=== PATIENT | male | born 1950 | race Caucasian/White ===

== ENCOUNTER 2018-08-11 14:10 | Outpatient (CLI) | payer MEDICARE ==
--- NOTE | 2018-08-11 16:04 | RAD ---
RIGHT HIP TWO VIEWS: 08/11/18 INDICATION: Right hip replacement. COMPARISON: Prior exam dated 05/12/14. FINDINGS: There is a right total hip prosthesis that projects in the expected position. There is numerous surgi osman clips within the lower pelvis. IMPRESSION: Right total hip prosthesis without evidence of complication. POS: [facility]
== END 2018-08-11 14:11 | disposition home or self-care (01) ==
LOC: SCSRAD 14:10
PROVIDERS: ATTEND Nurse Practitioner Family
DX: M25.551 Pain in right hip (principal); Z96.641 Presence of right artificial hip joint

== ENCOUNTER 2018-09-16 15:14 | Outpatient (CLI) | payer MEDICARE ==
--- NOTE | 2018-09-16 15:41 | RAD ---
TWO VIEWS CHEST: 09/16/18 PROVIDED CLINICAL HISTORY: Shortness of breath. FINDINGS: Comparison 11/10/11. Cardiac and mediastinal silhouette is within normal limits. No focal consolidation, pleural fluid or pneumothorax apparent. Remote healed right sided rib fractures are redemonstrated. IMPRESSION: No evidence for an acute cardiopulmonary process. POS: [facility]
== END 2018-09-16 15:15 | disposition home or self-care (01) ==
LOC: SCSRAD 15:14
PROVIDERS: ATTEND Nurse Practitioner Family
DX: R06.02 Shortness of breath (principal)
CPT/HCPCS: 71046

== ENCOUNTER 2018-11-10 12:38 | Outpatient (CLI) | payer MEDICARE | END 2018-11-10 12:39 | disposition home or self-care (01) | LOC: CP 12:38 | PROVIDERS: ATTEND Internal Medicine | DX: R06.09 Other forms of dyspnea (principal) | CPT/HCPCS: 94010; 94729 ==

== ENCOUNTER 2019-04-13 05:40 | Day surgery (SDC) | payer MEDICARE ==
[2019-04-04 14:38] VITALS: BMI 32.5
[2019-04-13] MEDS ORDERED: Heparin 10,000 UNITS/1 ML VIAL ONE (06:34)
[2019-04-13] MEDS ORDERED: Lidocaine 1% (PF) 30 ML VIAL ONE ×2 (06:35→06:36)
[2019-04-13] MEDS ORDERED: Heparin (Artline) 1,000 ML ONE (06:35)
[2019-04-13 06:50] LABS: Hemoglobin 14.3 g/dL (14.0-18.0); Mean Corpuscular HGB CONC 35.5 g/dL (32.0-36.0); Mean Corpuscular Hemoglobin 33.7 pg (27.0-31.0); Mean Corpuscular Volume 94.9 fL (78.0-98.0); Mean Platelet Volume 9.6 fL (7.4-10.4); Platelet Count 176 thou/uL (130-400); RBC Distribution Width 12.2 % (11.5-14.5); Red Blood Cell (RBC) Count 4.25 mill/uL (4.70-6.10)
[2019-04-13 07:03] LABS: ALT (SGPT) 14 U/L (8-55); AST (SGOT) 18 U/L (5-34); Albumin 4.6 g/dL (3.4-4.8); Alkaline Phosphatase 26 U/L (40-110); Anion Gap 14 mmol/L (10-20); BUN (Urea Nitrogen) 15 mg/dL (8.4-25.7); Bilirubin, Total 1.2 mg/dL (0.2-1.2); Calc. Creatinine Clearance 131 mL/min (70-130); Calcium 10.2 mg/dL (7.8-10.44); Carbon Dioxide 26 mmol/L (23-31); Chloride 99 mmol/L (98-107); Estimated GFR-MDRD Greater than 90; Globulin 3.1 g/dL (2.4-3.5); Glucose 119 mg/dL (80-115); Potassium 3.8 mmol/L (3.5-5.1); Protein, Total 7.7 g/dL (5.8-8.1); Sodium 135 mmol/L (136-145)
[2019-04-13 07:57] LABS: Band 1 % (5-11); Lymphocytes 21 % (21-51); MDiff Complete? YES; Monocytes 8 % (0-10); Neutrophil 70 % (42-75); RBC Morphology Normal
== END 2019-04-13 08:03 | disposition home or self-care (01) ==
LOC: CCL 05:40
PROVIDERS: ATTEND Internal Medicine Cardiovascular Disease
DX: R06.09 Other forms of dyspnea (principal); I25.2 Old myocardial infarction; E11.40 Type 2 diabetes mellitus with diabetic neuropathy, unspecified; I25.10 Atherosclerotic heart disease of native coronary artery without angina pectoris; I10 Essential (primary) hypertension; E78.5 Hyperlipidemia, unspecified; Z53.9 Procedure and treatment not carried out, unspecified reason; Z87.891 Personal history of nicotine dependence; Z79.1 Long term (current) use of non-steroidal anti-inflammatories (NSAID); Z79.52 Long term (current) use of systemic steroids; Z79.84 Long term (current) use of oral hypoglycemic drugs; Z79.899 Other long term (current) drug therapy; Z88.1 Allergy status to other antibiotic agents; Z88.5 Allergy status to narcotic agent; Z88.8 Allergy status to other drugs, medicaments and biological substances; Z91.041 Radiographic dye allergy status
CPT/HCPCS: 80053; 85025; J1644; J2001

== ENCOUNTER 2023-01-01 04:59 | Emergency (ER) | payer MEDICARE ==
[2023-01-01] MEDS ORDERED: Ketorolac Tromethamine 30 MG/ML VIAL ONE (05:19)
[2023-01-01 06:42] LABS: Hematocrit 41.3 % (42.0-52.0); Hemoglobin 14.4 g/dL (14.0-18.0); Manual Diff?? YES; Mean Corpuscular HGB CONC 34.9 g/dL (32.0-36.0); Mean Corpuscular Hemoglobin 30.7 pg (27.0-31.0); Mean Corpuscular Volume 88.1 fl (78.0-98.0); Mean Platelet Volume 11.1 fL (7.4-10.4); Platelet Count 212 10x3/uL (130-400); Red Blood Cell (RBC) Count 4.69 mill/uL (4.70-6.10); White Blood Cell (WBC) Count 10.7 10x3/uL (4.8-10.8)
[2023-01-01 06:52] LABS: Delete Auto Diff?? YES
[2023-01-01 07:13] LABS: ALT (SGPT) 9 U/L (8-55); AST (SGOT) 24 U/L (5-34); Alkaline Phosphatase 35 U/L (40-110); Anion Gap 19 mmol/L (10-20); BUN (Urea Nitrogen) 20 mg/dL (8.4-25.7); Bilirubin, Total 1.3 mg/dL (0.2-1.2); Calc. Creatinine Clearance 0 mL/min (70-130); Calcium 9.3 mg/dL (7.8-10.44); Carbon Dioxide 18 mmol/L (23-31); Chloride 103 mmol/L (98-107); Estimated GFR 78; Globulin 3.8 g/dL (2.4-3.5); Glucose 107 mg/dL (80-115); Lipase 13 U/L (8-78); Potassium 4.9 mmol/L (3.5-5.1); Protein, Total 7.8 g/dL (5.8-8.1); Sodium 135 mmol/L (136-145)
[2023-01-01 07:16] LABS: Band 7 % (5-11); CellaVision Operator ID lab.dlt; Lymphocytes 9 % (21-51); Monocytes 25 % (0-10); Neutrophil 58 % (42-75); Platelet Adequacy Comment Platelets Normal; Polychromasia SLIGHT = 2-3 cells HPF (0-2); Reactive Lymphocytes 1 % (0-10); Total Cell Count 98
== END 2023-01-01 09:10 | disposition home or self-care (01) ==
LOC: ERS 04:59
DX: R10.9 Unspecified abdominal pain (principal); I10 Essential (primary) hypertension; I25.10 Atherosclerotic heart disease of native coronary artery without angina pectoris; Z79.899 Other long term (current) drug therapy
CPT/HCPCS: 36415; 74176; 80053; 83605; 83690; 85025; 87040; 96361; 96374; J1885

== ENCOUNTER 2023-02-05 15:13 | Emergency (ER) | payer MEDICARE ==
[2023-02-05 15:45] LABS: #Basophils 0.1 thou/uL (0.0-0.2); #Eosinphils 0.4 thou/uL (0.0-0.7); #Monocytes 2.7 thou/uL (0.11-0.59); #Neutrophils 9.6 thou/uL (1.40-6.50); %Basophils 0.6 % (0.0-1.0); %Eosinophils 2.6 % (0.0-10.0); %Lymphocytes 10.6 % (21.0-51.0); %Monocytes 18.6 % (0.0-10.0); %Neutrophils 66.4 % (42.0-75.0); Hematocrit 39.7 % (42.0-52.0); Hemoglobin 13.7 g/dL (14.0-18.0); Mean Corpuscular HGB CONC 34.5 g/dL (32.0-36.0); Mean Corpuscular Hemoglobin 29.3 pg (27.0-31.0); Mean Platelet Volume 10.5 fL (7.4-10.4); Platelet Count 264 10x3/uL (130-400); RBC Distribution Width 13.2 % (11.5-14.5); Red Blood Cell (RBC) Count 4.67 mill/uL (4.70-6.10); White Blood Cell (WBC) Count 14.4 10x3/uL (4.8-10.8)
[2023-02-05 16:14] LABS: ALT (SGPT) 19 U/L (8-55); AST (SGOT) 29 U/L (5-34); Albumin 3.6 g/dL (3.4-4.8); Alkaline Phosphatase 52 U/L (40-110); Anion Gap 17 mmol/L (10-20); BUN (Urea Nitrogen) 28 mg/dL (8.4-25.7); Bilirubin, Total 0.8 mg/dL (0.2-1.2); Calc. Creatinine Clearance 0 mL/min (70-130); Calcium 9.8 mg/dL (7.8-10.44); Carbon Dioxide 20 mmol/L (23-31); Chloride 102 mmol/L (98-107); Estimated GFR 47; Globulin 4.2 g/dL (2.4-3.5); Glucose 102 mg/dL (83-110); Potassium 5.1 mmol/L (3.5-5.1); Protein, Total 7.8 g/dL (5.8-8.1); Sodium 134 mmol/L (136-145)
[2023-02-05] MEDS ORDERED: fentaNYL 50 mcg/mL 1 mL Vial ONE (16:54)
[2023-02-05 17:41] LABS: Bilirubin Negative (Negative); Blood, Urine 3+ (Negative); CAUTI Indications for Culture Dysuria,urgency,freq; Clarity Extra Turbid (Clear); Glucose, Urine (Dipstick) Normal (Negative); Ketone, Urine Trace mg/dL (Negative); Leukocyte 500 Leu/uL (Negative); Nitrite Negative (Negative); Protein, Urine (Dipstick) 70 mg/dL (Neg-Trace); RBC/HPF Greater than 50 HPF (0-3); Specific Gravity, Urine 1.017 (1.002-1.036); Squamous Epithelial None Seen HPF (0-3); Urobilinogen Normal mg/dL (Less than 2)
[2023-02-05 17:50] LABS: Bacteria/HPF 1+ HPF (None Seen)
[2023-02-05 17:52] LABS: Urine Culture Reflex Yes Yes
== END 2023-02-05 18:00 | disposition home or self-care (01) ==
LOC: ERS 15:13
DX: R33.9 Retention of urine, unspecified (principal); I10 Essential (primary) hypertension; I25.10 Atherosclerotic heart disease of native coronary artery without angina pectoris; Z87.891 Personal history of nicotine dependence; Z79.899 Other long term (current) drug therapy
CPT/HCPCS: 51702; 71045; 80053; 81001; 85025; 87086; 93005; 96374; 99285; J3010

== ENCOUNTER 2023-02-06 08:18 | Emergency (ER) | payer MEDICARE | END 2023-02-06 10:11 | disposition home or self-care (01) | LOC: ERS 08:18 | DX: R31.9 Hematuria, unspecified (principal); T83.091A Other mechanical complication of indwelling urethral catheter, initial encounter; R33.9 Retention of urine, unspecified; I25.10 Atherosclerotic heart disease of native coronary artery without angina pectoris; I10 Essential (primary) hypertension; Z87.891 Personal history of nicotine dependence; Z79.899 Other long term (current) drug therapy | CPT/HCPCS: 51702 ==

== ENCOUNTER 2023-03-29 19:45 | Inpatient (IN) | payer MEDICARE ==
[~2023-03-29 19:45] MED LIST: Iopamidol 370 76% 100 ML VIAL ONE
[2023-03-29] MEDS ORDERED: fentaNYL 50 mcg/mL 1 mL Vial ONE (20:51)
[2023-03-29 20:53] LABS: Hematocrit 43.4 % (42.0-52.0); Hemoglobin 14.8 g/dL (14.0-18.0); Mean Corpuscular HGB CONC 34.1 g/dL (32.0-36.0); Mean Corpuscular Hemoglobin 27.9 pg (27.0-31.0); Mean Corpuscular Volume 81.9 fl (78.0-98.0); Mean Platelet Volume 10.5 fL (7.4-10.4); Platelet Count 190 10x3/uL (130-400); RBC Distribution Width 16.6 % (11.5-14.5); White Blood Cell (WBC) Count 47.2 10x3/uL (4.8-10.8)
[2023-03-29 20:57] LABS: Delete Auto Diff?? YES; Manual Diff?? YES
[2023-03-29] MEDS ORDERED: Vancomycin (BATCH) 2 GM in Premix 1 BAG IVPB SCH (21:00)
[2023-03-29 21:17] LABS: ALT (SGPT) 19 U/L (8-55); AST (SGOT) 23 U/L (5-34); Albumin 3.9 g/dL (3.4-4.8); Alkaline Phosphatase 101 U/L (40-110); Anion Gap 22 mmol/L (10-20); BUN (Urea Nitrogen) 41 mg/dL (8.4-25.7); Bilirubin, Total 1.6 mg/dL (0.2-1.2); Calc. Creatinine Clearance 0 mL/min (70-130); Calcium 10.2 mg/dL (7.8-10.44); Carbon Dioxide 20 mmol/L (23-31); Chloride 100 mmol/L (98-107); Estimated GFR 58; Globulin 2.9 g/dL (2.4-3.5); Glucose 100 mg/dL (83-110); Potassium 3.3 mmol/L (3.5-5.1); Protein, Total 6.8 g/dL (5.8-8.1); Sodium 139 mmol/L (136-145)
[2023-03-29 21:37] LABS: Anisocytosis SLIGHT = 6-15 cells HPF (0-5); Band 17 % (5-11); Burr Cells SLIGHT = 2-5 cells HPF (0-1); CellaVision Operator ID LAB.JMM; Eosinophils 30 % (0-10); Lymphocytes 3 % (21-51); Macrocytosis SLIGHT = 6-15 cells HPF (0-5); Metamyelocyte 1 % (0-0); Monocytes 3 % (0-10); Myelocyte 1 % (0-0); Neutrophil 46 % (42-75); Nucleated RBC (Manual Ct) 1 % (0); Platelet Adequacy Comment Platelets Normal; Poikilocytosis SLIGHT = 6-15 cells HPF (0-5); Polychromasia SLIGHT = 2-3 cells HPF (0-2); Smudge Cells 20.8 %; Total Cell Count 101
[2023-03-29] MEDS ORDERED: diphenhydrAMINE 50 MG/ML VIAL ONE (22:08)
[2023-03-29] MEDS ORDERED: Famotidine/PF 20 mg/2ml Vial ONE (22:09)
[2023-03-29] MEDS ORDERED: methylPREDNISolone Sod Succ 40 MG VIAL ONE (22:11)
[2023-03-29] MEDS ORDERED: Ciprofloxacin Lactate/D5W 400 MG in Premix 1 BAG IVPB SCH (23:00)
[2023-03-30 00:50] LABS: Lactic Acid 2.8 mmol/L (0.5-2.2)
[2023-03-30] MEDS ORDERED: Ondansetron ODT 4 MG TAB SL PRN (01:00)
[2023-03-30] MEDS ORDERED: Ondansetron PF 4 MG/2 ML Vial IVP PRN (01:00)
[2023-03-30] MEDS ORDERED: Acetaminophen 325 MG TAB PO PRN (01:00)
[2023-03-30 04:19] LABS: Hematocrit 40.5 % (42.0-52.0); Hemoglobin 13.5 g/dL (14.0-18.0); Mean Corpuscular HGB CONC 33.3 g/dL (32.0-36.0); Mean Corpuscular Hemoglobin 28.1 pg (27.0-31.0); Mean Platelet Volume 10.3 fL (7.4-10.4); Platelet Count 164 10x3/uL (130-400); RBC Distribution Width 16.3 % (11.5-14.5)
[2023-03-30] MEDS: fentaNYL 50 mcg/mL 1 mL Vial SLOW IVP PRN ×6 (04:26→21:29)
[2023-03-30] MEDS: Lactated Ringer's 1,000 ML IV SCH ×2 (04:39→17:00)
[2023-03-30 04:43] LABS: Lactic Acid 2.8 mmol/L (0.5-2.2)
[2023-03-30 04:50] LABS: ALT (SGPT) 17 U/L (8-55); AST (SGOT) 19 U/L (5-34); Albumin 3.4 g/dL (3.4-4.8); Alkaline Phosphatase 85 U/L (40-110); Anion Gap 21 mmol/L (10-20); BUN (Urea Nitrogen) 37 mg/dL (8.4-25.7); Bilirubin, Total 1.3 mg/dL (0.2-1.2); Calc. Creatinine Clearance 90 mL/min (70-130); Calcium 9.4 mg/dL (7.8-10.44); Carbon Dioxide 17 mmol/L (23-31); Chloride 106 mmol/L (98-107); Estimated GFR 75; Globulin 2.5 g/dL (2.4-3.5); Glucose 118 mg/dL (83-110); Magnesium 1.4 mg/dL (1.6-2.6); Phosphorus 4.9 mg/dL (2.3-4.7); Potassium 3.7 mmol/L (3.5-5.1); Protein, Total 5.9 g/dL (5.8-8.1); Sodium 140 mmol/L (136-145)
[2023-03-30] MEDS ORDERED: Piperacillin/Tazobactam 3.375 GM in Sodium Chloride 0.9% 100 ML IVPB SCH (05:00)
[2023-03-30 05:23] LABS: White Blood Cell (WBC) Count 37.2 10x3/uL (4.8-10.8)
[2023-03-30 05:24] LABS: Delete Auto Diff?? YES; Manual Diff?? YES; Mean Corpuscular Volume 84.4 fl (78.0-98.0)
[2023-03-30] MEDS ORDERED: Electrolyte Replacement Protocol 1 EACH FS SCH (05:30)
[2023-03-30 06:11] LABS: Anisocytosis SLIGHT = 6-15 cells HPF (0-5); Band 29 % (5-11); Burr Cells MARKED = >16 cells HPF (0-1); CellaVision Operator ID LAB.JMM; Eosinophils 20 % (0-10); Macrocytosis SLIGHT = 6-15 cells HPF (0-5); Metamyelocyte 2 % (0-0); Monocytes 7 % (0-10); Myelocyte 1 % (0-0); Neutrophil 41 % (42-75); Platelet Adequacy Comment Platelets Normal; Poikilocytosis SLIGHT = 6-15 cells HPF (0-5); Polychromasia SLIGHT = 2-3 cells HPF (0-2); Smudge Cells 19.6 %; Total Cell Count 107
[2023-03-30] MEDS: Piperacillin/Tazobactam 3.375 GM in Sodium Chloride 0.9% 100 ML IVPB SCH ×2 (08:34→17:00)
[2023-03-30] MEDS: Famotidine/PF 20 mg/2ml Vial SLOW IVP SCH ×2 (08:34→19:27)
[2023-03-30] MEDS: Magnesium Sulfate In Water 4 GM in Premix 1 BAG IVPB SCH ×2 (08:34→09:30)
[2023-03-30 08:52] LABS: Fluid, pH - Pleural Fld 7.265 (7.60 - 7.66)
[2023-03-30 10:07] LABS: Fluid, Protein 3.5 g/dL (Not Available)
[2023-03-31] MEDS: Piperacillin/Tazobactam 3.375 GM in Sodium Chloride 0.9% 100 ML IVPB SCH ×3 (00:11→16:01)
[2023-03-31] MEDS: fentaNYL 50 mcg/mL 1 mL Vial SLOW IVP PRN ×6 (00:11→22:38)
[2023-03-31] MEDS: Lactated Ringer's 1,000 ML IV SCH (05:22)
[2023-03-31 06:54] LABS: Hematocrit 38.3 % (42.0-52.0); Hemoglobin 12.6 g/dL (14.0-18.0); Manual Diff?? YES; Mean Corpuscular HGB CONC 32.9 g/dL (32.0-36.0); Mean Corpuscular Hemoglobin 28.1 pg (27.0-31.0); Mean Corpuscular Volume 85.3 fl (78.0-98.0); Mean Platelet Volume 9.8 fL (7.4-10.4); Platelet Count 174 10x3/uL (130-400); RBC Distribution Width 16.5 % (11.5-14.5); Red Blood Cell (RBC) Count 4.49 mill/uL (4.70-6.10); White Blood Cell (WBC) Count 38.3 10x3/uL (4.8-10.8)
[2023-03-31 07:05] LABS: Delete Auto Diff?? YES
[2023-03-31] MEDS: traMADol HCl 50 MG TAB PO SCH ×2 (07:06→20:38)
[2023-03-31 07:29] LABS: Anion Gap 17 mmol/L (10-20); BUN (Urea Nitrogen) 35 mg/dL (8.4-25.7); Calc. Creatinine Clearance 87 mL/min (70-130); Calcium 8.7 mg/dL (7.8-10.44); Carbon Dioxide 20 mmol/L (23-31); Chloride 107 mmol/L (98-107); Estimated GFR 67; Glucose 137 mg/dL (83-110); Potassium 3.5 mmol/L (3.5-5.1); Sodium 140 mmol/L (136-145)
[2023-03-31] MEDS: Famotidine/PF 20 mg/2ml Vial SLOW IVP SCH (07:49)
[2023-03-31 08:01] LABS: Band 11 % (5-11); Burr Cells MARKED = >16 cells HPF (0-1); CellaVision Operator ID LAB.GE; Eosinophils 8 % (0-10); Lymphocytes 6 % (21-51); Metamyelocyte 1 % (0-0); Monocytes 13 % (0-10); Neutrophil 62 % (42-75); Nucleated RBC (Manual Ct) 1 % (0); Platelet Adequacy Comment Platelets Normal; Polychromasia SLIGHT = 2-3 cells HPF (0-2); Total Cell Count 117; Vacuoles SLIGHT
[2023-03-31] MEDS ORDERED: Potassium Chloride 20 MEQ TAB PO SCH (08:30)
[2023-03-31] MEDS ORDERED: Bisacodyl 5 MG TAB PO PRN (15:06)
[2023-03-31] MEDS ORDERED: Bisacodyl 5 MG TAB PO SCH (15:15)
[2023-03-31] MEDS: Senokot S 8.6-50 MG TAB PO SCH (20:40)
[2023-03-31] MEDS: Famotidine 20 MG TAB PO SCH (20:40)
[2023-03-31] MEDS: Calcium Carbonate 500 MG ChewTAB PO PRN (22:39)
[2023-04-01] MEDS: Piperacillin/Tazobactam 3.375 GM in Sodium Chloride 0.9% 100 ML IVPB SCH ×3 (00:41→18:09)
[2023-04-01] MEDS: fentaNYL 50 mcg/mL 1 mL Vial SLOW IVP PRN ×5 (03:31→18:10)
[2023-04-01] MEDS: Calcium Carbonate 500 MG ChewTAB PO PRN ×2 (04:40→18:15)
[2023-04-01 05:47] LABS: Hematocrit 35.5 % (42.0-52.0); Hemoglobin 11.5 g/dL (14.0-18.0); Manual Diff?? YES; Mean Corpuscular HGB CONC 32.4 g/dL (32.0-36.0); Mean Corpuscular Hemoglobin 28.3 pg (27.0-31.0); Mean Corpuscular Volume 87.2 fl (78.0-98.0); Mean Platelet Volume 10.2 fL (7.4-10.4); Platelet Count 171 10x3/uL (130-400); RBC Distribution Width 16.2 % (11.5-14.5); Red Blood Cell (RBC) Count 4.07 mill/uL (4.70-6.10); White Blood Cell (WBC) Count 46.3 10x3/uL (4.8-10.8)
[2023-04-01 06:13] LABS: Delete Auto Diff?? YES
[2023-04-01 07:35] LABS: Band 14 % (5-11); CellaVision Operator ID LAB.GE; Eosinophils 29 % (0-10); Lymphocytes 2 % (21-51); Metamyelocyte 1 % (0-0); Monocytes 13 % (0-10); Neutrophil 41 % (42-75); Platelet Adequacy Comment Platelets Normal; Polychromasia MODERATE = 3-4 cells HPF (0-2); Total Cell Count 106
[2023-04-01 08:34] VITALS: BP 102/66
[2023-04-01] MEDS ORDERED: Docusate 100 MG CAP PO SCH (09:00)
[2023-04-01] MEDS: Senokot S 8.6-50 MG TAB PO SCH ×2 (09:23→20:32)
[2023-04-01] MEDS: Famotidine 20 MG TAB PO SCH ×2 (09:23→20:32)
[2023-04-01] MEDS: traMADol HCl 50 MG TAB PO SCH ×2 (09:24→20:30)
[2023-04-01] MEDS ORDERED: Communication Order-Pharmacy FS SCH (09:38)
[2023-04-01] MEDS ORDERED: fentaNYL PF 100 MCG/2 ML SYRINGE ONE (10:01)
[2023-04-01] MEDS ORDERED: Dexmedetomidine 200 MCG/2 ML VIAL ONE (11:54)
[2023-04-01] MEDS ORDERED: PROPOFOL 200 MG/20 ML VIAL ONE (12:08)
[2023-04-01] MEDS ORDERED: Esmolol 100 MG/10 ML VIAL ONE (12:08)
[2023-04-01] MEDS ORDERED: fentaNYL 50 mcg/mL 1 mL Vial ONE (13:15)
[2023-04-01] MEDS ORDERED: Ipratropium/Albuterol 3 ML NEB ONE (14:02)
[2023-04-01] MEDS ORDERED: Vasopressin 20 UNITS/ML VIAL ONE (14:07)
[2023-04-01] MEDS ORDERED: PHENYLEPHRINE-NS 100 MCG/ML 10 ML SYRINGE ONE (14:07)
[2023-04-01] MEDS ORDERED: Albumin 5% 500 ML ONE ×2 (14:08→14:33)
[2023-04-01 15:08] LABS: Hematocrit 40.4 % (42.0-52.0); Hemoglobin 12.7 g/dL (14.0-18.0); Mean Corpuscular HGB CONC 31.4 g/dL (32.0-36.0); Mean Corpuscular Hemoglobin 27.9 pg (27.0-31.0); Mean Corpuscular Volume 88.8 fl (78.0-98.0); Mean Platelet Volume 10.4 fL (7.4-10.4); Platelet Count 195 10x3/uL (130-400); RBC Distribution Width 16.5 % (11.5-14.5); Red Blood Cell (RBC) Count 4.55 mill/uL (4.70-6.10)
[2023-04-01 15:14] LABS: White Blood Cell (WBC) Count 69.7 10x3/uL (4.8-10.8)
[2023-04-01] MEDS: Ketorolac Tromethamine 30 MG/ML VIAL IVP PRN ×2 (15:18→20:32)
[2023-04-01] MEDS ORDERED: Ketorolac Tromethamine 30 MG/ML VIAL ONE (15:20)
[2023-04-01 15:28] LABS: Anion Gap 18 mmol/L (10-20); BUN (Urea Nitrogen) 34 mg/dL (8.4-25.7); Calc. Creatinine Clearance 78 mL/min (70-130); Calcium 9.3 mg/dL (7.8-10.44); Carbon Dioxide 18 mmol/L (23-31); Chloride 109 mmol/L (98-107); Estimated GFR 60; Glucose 71 mg/dL (83-110); Potassium 4.1 mmol/L (3.5-5.1); Sodium 141 mmol/L (136-145)
[2023-04-02] MEDS ORDERED: Sodium Chloride 0.9% 500 ML IV SCH (01:00)
[2023-04-02] MEDS ORDERED: Dextrose 5 %-0.45 % NaCl 1,000 ML IV SCH (01:00)
[2023-04-02] MEDS: Piperacillin/Tazobactam 3.375 GM in Sodium Chloride 0.9% 100 ML IVPB SCH ×3 (01:17→16:34)
[2023-04-02] MEDS: Ketorolac Tromethamine 30 MG/ML VIAL IVP PRN ×3 (03:10→21:37)
[2023-04-02] MEDS: fentaNYL 50 mcg/mL 1 mL Vial SLOW IVP PRN ×3 (06:18→23:12)
[2023-04-02 06:43] LABS: Hematocrit 36.4 % (42.0-52.0); Hemoglobin 11.9 g/dL (14.0-18.0); Mean Corpuscular HGB CONC 32.7 g/dL (32.0-36.0); Mean Corpuscular Hemoglobin 28.4 pg (27.0-31.0); Mean Corpuscular Volume 86.9 fl (78.0-98.0); Mean Platelet Volume 10.4 fL (7.4-10.4); Platelet Count 158 10x3/uL (130-400); RBC Distribution Width 16.7 % (11.5-14.5); Red Blood Cell (RBC) Count 4.19 mill/uL (4.70-6.10); White Blood Cell (WBC) Count 50.2 10x3/uL (4.8-10.8)
[2023-04-02 06:48] LABS: Delete Auto Diff?? YES; Manual Diff?? YES
[2023-04-02 07:00] LABS: Anion Gap 17 mmol/L (10-20); BUN (Urea Nitrogen) 33 mg/dL (8.4-25.7); Calc. Creatinine Clearance 81 mL/min (70-130); Calcium 9.3 mg/dL (7.8-10.44); Carbon Dioxide 19 mmol/L (23-31); Chloride 110 mmol/L (98-107); Estimated GFR 63; Glucose 106 mg/dL (83-110); Potassium 4.4 mmol/L (3.5-5.1); Sodium 142 mmol/L (136-145)
[2023-04-02 07:42] LABS: Band 22 % (5-11); CellaVision Operator ID LAB.GE; Eosinophils 23 % (0-10); Lymphocytes 4 % (21-51); Macrocytosis SLIGHT = 6-15 cells HPF (0-5); Monocytes 7 % (0-10); Neutrophil 45 % (42-75); Platelet Adequacy Comment Platelets Normal; Polychromasia MODERATE = 3-4 cells HPF (0-2); Total Cell Count 101; Vacuoles MODERATE
[2023-04-02 08:02] LABS: INR-International Normal Ratio 1.6; PTT 33.8 sec (22.9-36.1); Prothrombin Time 19.6 sec (12.0-14.7)
[2023-04-02] MEDS: traMADol HCl 50 MG TAB PO SCH ×2 (08:36→21:38)
[2023-04-02] MEDS: Senokot S 8.6-50 MG TAB PO SCH ×2 (08:36→23:11)
[2023-04-02] MEDS: Famotidine 20 MG TAB PO SCH ×2 (08:38→21:39)
[2023-04-02] MEDS: Calcium Carbonate 500 MG ChewTAB PO PRN ×2 (09:46→15:49)
[2023-04-02] MEDS ORDERED: Sodium Bicarbonate 2.5 MEQ/5 ML VIAL ONE (11:14)
[2023-04-02] MEDS ORDERED: fentaNYL 50 mcg/mL 1 mL Vial ONE ×2 (12:30→12:51)
[2023-04-02] MEDS ORDERED: Furosemide 20 MG/2 ML VIAL SLOW IVP SCH ×2 (15:30→19:00)
[2023-04-02] MEDS: Ondansetron PF 4 MG/2 ML Vial IVP PRN (21:58)
[2023-04-03] MEDS: Piperacillin/Tazobactam 3.375 GM in Sodium Chloride 0.9% 100 ML IVPB SCH ×2 (02:11→09:03)
[2023-04-03] MEDS: Ondansetron PF 4 MG/2 ML Vial IVP PRN (07:47)
[2023-04-03] MEDS: fentaNYL 50 mcg/mL 1 mL Vial SLOW IVP PRN ×4 (07:47→12:08)
[2023-04-03 07:48] VITALS: TEMP 97.4
[2023-04-03 07:57] VITALS: BMI 31.1
[2023-04-03 08:20] LABS: Hematocrit 37.4 % (42.0-52.0); Hemoglobin 11.7 g/dL (14.0-18.0); Manual Diff?? YES; Mean Corpuscular HGB CONC 31.3 g/dL (32.0-36.0); Mean Corpuscular Hemoglobin 27.7 pg (27.0-31.0); Mean Corpuscular Volume 88.4 fl (78.0-98.0); Mean Platelet Volume 10.3 fL (7.4-10.4); Platelet Count 161 10x3/uL (130-400); RBC Distribution Width 17.1 % (11.5-14.5); Red Blood Cell (RBC) Count 4.23 mill/uL (4.70-6.10); White Blood Cell (WBC) Count 46.8 10x3/uL (4.8-10.8)
[2023-04-03 08:28] LABS: Delete Auto Diff?? YES
[2023-04-03] MEDS: Ketorolac Tromethamine 30 MG/ML VIAL IVP PRN (08:31)
[2023-04-03 08:35] LABS: Anion Gap 18 mmol/L (10-20); BUN (Urea Nitrogen) 37 mg/dL (8.4-25.7); Calc. Creatinine Clearance 78 mL/min (70-130); Calcium 9.3 mg/dL (7.8-10.44); Carbon Dioxide 20 mmol/L (23-31); Chloride 109 mmol/L (98-107); Estimated GFR 60; Glucose 111 mg/dL (83-110); Potassium 4.3 mmol/L (3.5-5.1); Sodium 143 mmol/L (136-145)
[2023-04-03 08:53] LABS: Anisocytosis SLIGHT = 6-15 cells HPF (0-5); Band 10 % (5-11); Burr Cells SLIGHT = 2-5 cells HPF (0-1); CellaVision Operator ID lab.dlt; Eosinophils 10 % (0-10); Lymphocytes 5 % (21-51); Monocytes 16 % (0-10); Neutrophil 60 % (42-75); Nucleated RBC (Manual Ct) 1 % (0); Platelet Adequacy Comment Platelets Normal; Poikilocytosis SLIGHT = 6-15 cells HPF (0-5); Polychromasia SLIGHT = 2-3 cells HPF (0-2); Total Cell Count 104
[2023-04-03] MEDS ORDERED: fentaNYL 50 mcg/hour Patch TD SCH (09:15)
[2023-04-03] MEDS: Famotidine 20 MG TAB PO SCH (09:24)
[2023-04-03] MEDS: traMADol HCl 50 MG TAB PO SCH (09:24)
[2023-04-03] MEDS: Senokot S 8.6-50 MG TAB PO SCH (09:24)
[2023-04-03 13:40] LABS: Fungus Stain Final report (.)
== END 2023-04-03 12:04 | disposition hospice, inpatient (51) | DRG 180 ==
LOC: ERS 19:45 → CCU 03-30 00:38 → MSONC 03-31 17:41 → IMCU/EMU 04-01 17:24
PROVIDERS: ADMIT Student in an Organized Health Care Education/Training Program; ATTEND Internal Medicine
PROC: 3E03329 Introduction of Other Anti-infective into Peripheral Vein, Percutaneous Approach (ICD-10-PCS; 2023-03-29)
PROC: 0W993ZZ Drainage of Right Pleural Cavity, Percutaneous Approach (ICD-10-PCS; principal; 2023-03-30)
PROC: 0W9930Z Drainage of Right Pleural Cavity with Drainage Device, Percutaneous Approach (ICD-10-PCS; 2023-04-01)
PROC: 3E033XZ Introduction of Vasopressor into Peripheral Vein, Percutaneous Approach (ICD-10-PCS; 2023-04-01)
PROC: 30233J1 Transfusion of Nonautologous Serum Albumin into Peripheral Vein, Percutaneous Approach (ICD-10-PCS; 2023-04-01)
PROC: 0T9B70Z Drainage of Bladder with Drainage Device, Via Natural or Artificial Opening (ICD-10-PCS; 2023-04-02)
DX: C34.11 Malignant neoplasm of upper lobe, right bronchus or lung (principal); A41.9 Sepsis, unspecified organism; J96.01 Acute respiratory failure with hypoxia; J90 Pleural effusion, not elsewhere classified; E87.20 Acidosis, unspecified; N39.0 Urinary tract infection, site not specified; Z51.5 Encounter for palliative care; Z66 Do not resuscitate; N17.9 Acute kidney failure, unspecified; C78.7 Secondary malignant neoplasm of liver and intrahepatic bile duct; C79.72 Secondary malignant neoplasm of left adrenal gland; C79.71 Secondary malignant neoplasm of right adrenal gland; Z88.8 Allergy status to other drugs, medicaments and biological substances; Z88.5 Allergy status to narcotic agent; Z91.041 Radiographic dye allergy status; Z79.899 Other long term (current) drug therapy; Z79.84 Long term (current) use of oral hypoglycemic drugs; I25.10 Atherosclerotic heart disease of native coronary artery without angina pectoris; I25.2 Old myocardial infarction; Z98.890 Other specified postprocedural states; Z87.891 Personal history of nicotine dependence; E87.6 Hypokalemia; N18.2 Chronic kidney disease, stage 2 (mild); E11.22 Type 2 diabetes mellitus with diabetic chronic kidney disease; I12.9 Hypertensive chronic kidney disease with stage 1 through stage 4 chronic kidney disease, or unspecified chronic kidney disease; Z96.642 Presence of left artificial hip joint; Z82.49 Family history of ischemic heart disease and other diseases of the circulatory system; C61 Malignant neoplasm of prostate; R33.9 Retention of urine, unspecified; E83.52 Hypercalcemia; R53.81 Other malaise
CPT/HCPCS: 36415; 36416; 51102; 71045; 71260; 74177; 77002; 80048; 80053; 82105; 82150; 82378; 82945; 83605; 83735; 83986; 84100; 84145; 84153; 84157; 85025; 85610; 85730; 87040; 87070; 87077; 87086; 87102; 87116; 87186; 87205; 87206; 88112; 88305; 88341; 88342; 93005; 94760; 96361; 96365; 96366; 96367; 96375; A7048; C1729; C2627; J0744; J1200; J1650; J1885; J1940; J2405; J2543; J2704; J2920; J3010; J3370; J3475; J3490; J7030; J7042; J7120; J7620; P9045; Q0162; Q9967; S0028

== ENCOUNTER 2023-04-03 11:54 | Inpatient (IN) | payer OTHER ==
[2023-04-03 12:24] VITALS: BMI 31.0
[2023-04-03] MEDS ORDERED: Furosemide 40 MG/4 ML VIAL SLOW IVP PRN (13:12)
[2023-04-03] MEDS ORDERED: Scopolamine 1 mg/72 hour Patch TOP PRN (13:15)
[2023-04-03] MEDS ORDERED: Hyoscyamine SL 0.125 MG TAB SL PRN (13:15)
[2023-04-03] MEDS ORDERED: fentaNYL 50 mcg/hour Patch TD SCH (13:15)
[2023-04-03] MEDS: Lorazepam 2 MG/ML VIAL SLOW IVP PRN ×2 (13:19→19:14)
[2023-04-03 20:08] VITALS: TEMP 97.9
[2023-04-03] MEDS: fentaNYL 50 mcg/mL 1 mL Vial SLOW IVP PRN ×3 (20:12→22:37)
== END 2023-04-03 22:46 | disposition expired | DRG 951 ==
LOC: IMCU/EMU 11:54
PROVIDERS: ADMIT Family Medicine; ATTEND Family Medicine
DX: Z51.5 Encounter for palliative care (principal); J96.00 Acute respiratory failure, unspecified whether with hypoxia or hypercapnia; A41.9 Sepsis, unspecified organism; J90 Pleural effusion, not elsewhere classified; C61 Malignant neoplasm of prostate; N18.2 Chronic kidney disease, stage 2 (mild); I25.10 Atherosclerotic heart disease of native coronary artery without angina pectoris
CPT/HCPCS: J2060; J3010